=== PATIENT | female | born 1995 | race Hispanic/Latino ===

== ENCOUNTER 2018-03-10 22:03 | Inpatient (IN) | payer MEDICAID ==
[~2018-03-10] VITALS: Ht 152.4 cm; Wt 77.6 kg
[~2018-03-10 22:03] MED LIST: PREN1TAB80 PO
[2018-03-10] MEDS ORDERED: LACTATED RINGERS 1000ML 1,000 ML IV PRN (22:26)
[2018-03-10] MEDS ORDERED: PREN-196 PO (22:36)
[2018-03-10 22:40] LABS: APPEARANCE,URINE Cloudy (CLEAR); BILIRUBIN,URINE Negative (NEGATIVE); COLOR,URINE Yellow (YELLOW); GLUCOSE, URINE (UA) Negative (NEGATIVE); KETONES,URINE Negative (NEGATIVE); LEUKOCYTE ESTERASE ,URINE Moderate (NEGATIVE); NITRATE,URINE Negative (NEGATIVE); OCCULT BLOOD,URINE Negative (NEGATIVE); PROTEIN,URINE Negative (NEGATIVE); UROBILINOGEN,URINE 0.2 mg/dL (0.2-1.0)
[2018-03-10] MEDS ORDERED: LACTATED RINGERS 1000ML 1,000 ML IV ONE (22:57)
[2018-03-10 23:00] LABS: BACTERIA,URINE Moderate /HPF (None Seen); RBC,URINE 0-1 /HPF (0-1)
[2018-03-10 23:01] LABS: HEMATOCRIT 28.9 % (36-48); MEAN CORPUSCULAR HEMOGLOBIN 24.5 pg (27.0-33.0); MEAN CORPUSCULAR HGB CONC 32.3 g/dL (32.0-36.0); MEAN CORPUSCULAR VOLUME 75.8 fL (79-99); NUCLEATED RED BLOOD CELLS 0.1 % (0.0-0.19); PLATELET COUNT (AUTO) 275 K/uL (130-400); RED BLOOD CELL COUNT(AUTO) 3.81 MIL/uL (4.00-5.50); RED CELL DISTRIBUTION WIDTH 17.4 % (11.0-15.5); WHITE BLOOD COUNT (AUTO) 8.8 K/uL (4.8-10.8)
[2018-03-10 23:01] LABS: SQUAMOUS EPITHELIAL CELL,UR Moderate /HPF (0-2)
[2018-03-11] MEDS: LACTATED RINGERS 1000ML 1,000 ML IV SCH ×2 (01:02→06:45)
[2018-03-11] MEDS ORDERED: LACTATED RINGERS 1000ML 1,000 ML IV ONE ×2 (04:32→14:18)
[2018-03-11] MEDS ORDERED: OXYTOCIN 10 USP UNITS/ML ONE ×2 (04:33→14:18)
[2018-03-11] MEDS ORDERED: OXYTOCIN 10 USP UNITS/ML 20 UNIT in LACTATED RINGERS 1000ML 1,000 ML IV SCH (05:00)
[2018-03-11] MEDS: PROMETHAZINE HCL 25 MG/ML 1ML AMPULE IM SCH ×2 (12:21→20:37)
[2018-03-11] MEDS: MEPERIDINE-PF 50 MG/ML SYG IVP SCH (12:21)
[2018-03-11] MEDS: OXYTOCIN-LR 20 UNITS/1000 ML 1,000 ML IV SCH ×2 (13:30→20:37)
[2018-03-11] MEDS ORDERED: DIPH,PERTUSS(ACELL),TET VAC/PF 0.5 ML VIAL IM PRN (13:30)
[2018-03-11] MEDS ORDERED: WITCH HAZEL 1 PAD TP PRN (13:30)
[2018-03-11] MEDS ORDERED: LANOLIN 30GM OINTMENT TP PRN (13:30)
[2018-03-11] MEDS ORDERED: BENZOCAINE/LANOLIN/ALOE VERA 60 ML AEROSOL TP PRN (13:30)
[2018-03-11] MEDS ORDERED: ACETAMINOPHEN-CODEINE 300/30MG TAB PO PRN (13:30)
[2018-03-11] MEDS ORDERED: MEASLES/MUMPS/RUBELLA VACCINE, LIVE 0.5 ML/VIAL SQ PRN (13:30)
[2018-03-11] MEDS: IBUPROFEN 800 MG TAB PO PRN (15:55)
[2018-03-11 16:00] VITALS: BP 120/66
[2018-03-11] MEDS: ACETAMINOPHEN 325 MG TAB PO PRN (18:45)
[2018-03-11 19:50] VITALS: BP 115/82
[2018-03-11] MEDS: DOCUSATE SODIUM 100 MG CAP PO SCH (20:56)
[2018-03-11 23:30] VITALS: BP 117/67
[2018-03-12 03:36] VITALS: BP 118/69
[2018-03-12] MEDS: IBUPROFEN 800 MG TAB PO PRN ×2 (03:36→20:13)
[2018-03-12 06:55] LABS: HEMATOCRIT 27.2 % (36-48); MEAN CORPUSCULAR HEMOGLOBIN 24.5 pg (27.0-33.0); MEAN CORPUSCULAR VOLUME 76.6 fL (79-99); PLATELET COUNT (AUTO) 239 K/uL (130-400); RED BLOOD CELL COUNT(AUTO) 3.55 MIL/uL (4.00-5.50); RED CELL DISTRIBUTION WIDTH 17.4 % (11.0-15.5); WHITE BLOOD COUNT (AUTO) 9.1 K/uL (4.8-10.8)
[2018-03-12 07:42] VITALS: BP 108/65
[2018-03-12 08:23] LABS: HEPATITIS Bs ANTIGEN SCREEN P Negative (Negative)
[2018-03-12] MEDS: MEPERIDINE-PF 50 MG/ML SYG IVP SCH (08:43)
[2018-03-12] MEDS: DOCUSATE SODIUM 100 MG CAP PO SCH ×2 (08:47→20:12)
[2018-03-12] MEDS: ACETAMINOPHEN 325 MG TAB PO PRN (08:52)
[2018-03-12 11:18] VITALS: BP 103/75
[2018-03-12] MEDS: LACTATED RINGERS 1000ML 1,000 ML IV SCH ×4 (14:45→22:53)
[2018-03-12 15:16] VITALS: BP 112/74
[2018-03-12 19:47] VITALS: BP 110/66
[2018-03-12] MEDS: PROMETHAZINE HCL 25 MG/ML 1ML AMPULE IM SCH (22:52)
[2018-03-12 23:43] VITALS: BP 112/72
[2018-03-13 03:47] VITALS: BP 100/57
[2018-03-13 07:16] VITALS: BP 120/77
[2018-03-13] MEDS: DOCUSATE SODIUM 100 MG CAP PO SCH (08:43)
[2018-03-13] MEDS: IBUPROFEN 800 MG TAB PO PRN (08:44)
[2018-03-13 11:14] VITALS: BP 117/70
== END 2018-03-13 13:20 | disposition home or self-care (01) | DRG 560 ==
LOC: LDH 22:03 → WSH 03-11 16:00
PROVIDERS: ADMIT Obstetrics & Gynecology; ATTEND Obstetrics & Gynecology
PROC: 10907ZC Drainage of Amniotic Fluid, Therapeutic from Products of Conception, Via Natural or Artificial Opening (ICD-10-PCS; principal; 2018-03-11)
PROC: 10E0XZZ Delivery of Products of Conception, External Approach (ICD-10-PCS; 2018-03-11)
PROC: 3E033VJ Introduction of Other Hormone into Peripheral Vein, Percutaneous Approach (ICD-10-PCS; 2018-03-11)
PROC: 0UQGXZZ Repair Vagina, External Approach (ICD-10-PCS; 2018-03-11)
PROC: 3E0234Z Introduction of Serum, Toxoid and Vaccine into Muscle, Percutaneous Approach (ICD-10-PCS; 2018-03-12)
DX: O69.81X0 Labor and delivery complicated by cord around neck, without compression, not applicable or unspecified (principal); O71.4 Obstetric high vaginal laceration alone; Z23 Encounter for immunization; Z37.0 Single live birth; Z3A.39 39 weeks gestation of pregnancy
CPT/HCPCS: 36415; 81001; 85027; 86592; 86850; 86900; 86901; 87340; 90715; A4351; J2175; J2550; J2590; J7120